=== PATIENT | male | born 1955 | race Caucasian/White ===

== ENCOUNTER 2019-03-28 09:37 | Emergency (ER) | payer BC ==
--- NOTE | 2019-03-28 10:24 | ED ---
Abdominal Pain/Male - HPI Summary HPI Summary: 64-year-old male presents with complaints of constipation. Patient states that approximately one week ago he went to urgent days without having a bowel movement so he took a laxative. The next day he had a couple very small bowel movements and then was unable to go for another 5 days. He took another laxative last evening and had a couple more small bowel movements including one in the emergency room shortly after arrival. States his abdomen feels distended and he has noticed that his belly button seems to be "popping out". No abdominal pain except for some mild tenderness when he presses over his belly button. Denies fever, chills, chest pain, shortness of breath, nausea, vomiting, diarrhea, blood in stool, melena, dysuria, frequency, urgency, or hematuria. - History of Current Complaint Chief Complaint: EDConstipation Stated Complaint: CONSTIPATION Time Seen by Provider: 03/28/19 09:46 Hx Obtained From: Patient Pain Intensity: 2 - Allergies/Home Medications Allergies/Adverse Reactions: Allergies Allergy/AdvReac Type Severity Reaction Status Date / Time No Known Allergies Allergy Verified 11/30/15 02:56 Home Medications: Home Medications Atorvastatin* [Lipitor*] 10 mg PO BEDTIME 03/28/19 [History Confirmed 03/28/19] Verapamil HCl [Verapamil Sr] 180 mg PO DAILY 03/28/19 [History Confirmed ] PMH/Surg Hx/FS Hx/Imm Hx Endocrine/Hematology History: Denies: Hx Diabetes, Hx Thyroid Disease Cardiovascular History: Reports: Hx Hypertension - BENIGN Denies: Hx Coronary Artery Disease Respiratory History: Reports: Hx Sleep Apnea GI History: Denies: Hx Diverticulosis, Hx Gall Bladder Disease, Hx Gastroesophageal Reflux Disease, Hx Gastrointestinal Bleed, Hx Irritable Bowel, Hx Obstructive Bowel, Hx Ulcer Infectious Disease History: No Infectious Disease History: Denies: Traveled Outside the [place] in Last 30 Days - Family History Known Family History: Positive: Non-Contributory - Social History Occupation: Employed Full-time Lives: With Family Alcohol Use: None Substance Use Type: Reports: None Hx Tobacco Use: No Smoking Status (MU): Never Smoked Tobacco Review of Systems Negative: Fever, Chills Cardiovascular: Negative Respiratory: Negative Positive: Abdominal Pain, Other - Constipation. Negative: Vomiting, Diarrhea, Nausea Negative: dysuria, frequency, flank pain, hematuria, urgency Musculoskeletal: Negative Skin: Negative Neurological: Negative All Other Systems Reviewed And Are Negative: Yes Physical Exam - Summary Physical Exam Summary: GENERAL APPEARANCE: Alert and cooperative, obese, older adult male who appears to be in no acute distress. CARDIAC: Normal S1 and S2. No S3, S4 or murmurs. Rhythm is regular. There is no peripheral edema, cyanosis or pallor. Extremities are warm and well perfused. Capillary refill is less than 2 seconds. Peripheral pulses intact. LUNGS: Clear to auscultation without rales, rhonchi, wheezing or diminished breath sounds. ABDOMEN: Positive bowel sounds. Rotund, soft, nondistended, nontender abdomen. Small reducible umbilical hernia. No guarding or rebound. No masses or hepatosplenomegally. No CVA tenderness. MUSKULOSKELETAL: ROM intact to all extremities. No joint erythema or tenderness. Normal muscular development. Normal gait. SKIN: Skin normal color, texture and turgor with no lesions or eruptions. Triage Information Reviewed: Yes Vital Signs On Initial Exam: Initial Vitals Temp Pulse Resp BP Pulse Ox 99 F 63 20 181/83 94 03/28/19 09:39 03/28/19 09:39 03/28/19 09:39 03/28/19 09:39 03/28/19 09:39 Vital Signs Reviewed: Yes Diagnostics - Vital Signs Vital Signs Temp Pulse Resp BP Pulse Ox 03/28/19 10:00 62 98 03/28/19 09:57 64 196/108 98 03/28/19 09:56 67 97 03/28/19 09:39 99 F 63 20 181/83 94 - Laboratory Result Diagrams: 03/28/19 10:44 03/28/19 10:45 Lab Statement: Any lab studies that have been ordered have been reviewed, and results considered in the medical decision making process. - Radiology No standard instances Radiology Interpretation Completed By: ED Physician Summary of Radiographic Findings: Patient Name: FLORENTINO PATEL Medical Record#: [id number]. Ordering Physician: Gamaliel Jimenez NP Acct.#: [id number]. : 1955 Age: 64 Sex: M Location: EMERGENCY DEPARTMENT. Exam Date: 1005 ADM Status: REG ER. Order Information: ABDOMEN (COMPLETE) 2 VWS. Accession Number: [id number]. CPT: 58522. INDICATION: Abdominal pain and constipation. COMPARISON: CT of the abdomen and pelvis dated December 30, 2011. TECHNIQUE: Supine and upright views of the abdomen were obtained. FINDINGS: The small bowel and colon appear nondistended. No free intraperitoneal air is seen. No grossly abnormal or pathologic appearing calcifications are noted. Visualized bones are within normal limits for the patient's age. IMPRESSION: Normal abdominal radiograph. Abdominal Pain Male Course/Dx - Course Course Of Treatment: 64-year-old male presents with complaints of constipation. Patient states that approximately one week ago he went to urgent days without having a bowel movement so he took a laxative. The next day he had a couple very small bowel movements and then was unable to go for another 5 days. He took another laxative last evening and had a couple more small bowel movements including one in the emergency room shortly after arrival. States his abdomen feels distended and he has noticed that his belly button seems to be "popping out". No abdominal pain except for some mild tenderness when he presses over his belly button. Denies fever, chills, chest pain, shortness of breath, nausea , vomiting, diarrhea, blood in stool, melena, dysuria, frequency, urgency, or hematuria. Afebrile. Hypertensive otherwise vital signs stable. Patient was noted to have rotund, soft, nontender abdomen with positive bowel sounds, small umbilical hernia was noted, and otherwise unremarkable exam. Abdominal x-ray showed no acute pathology. CBC showed a mild normocytic anemia and CMP was unremarkable except for a mildly elevated creatinine. Discussed findings with the patient. I suspect that this is constipation although I did psychotherapist counselor the patient that the x-ray is not as sensitive as CT however with his nontender abdomen did not feel that this was warranted at this time. Recommending a high fiber diet as well as using a fiber supplement. He is to follow-up with his primary care provider in 3 days for recheck. Discharged guidance and warning symptoms are reviewed with the patient. Verbalizes understanding and agrees with plan of care. - Diagnoses Differential Diagnosis/HQI/PQRI: Bowel Obstruction, Constipation Provider Diagnoses: Constipation Discharge - Sign-Out/Discharge Documenting (check all that apply): Patient Departure Patient Received Moderate/Deep Sedation with Procedure: No - Discharge Plan Condition: Stable Disposition: HOME Patient Education Materials: Constipation (ED), High Fiber Diet (ED) Referrals: Thu Nielson, HOUSEKEEPING ROOM INSPECTOR [Primary Care Provider] - 3 Days Additional Instructions: Your abdominal x-ray performed in the emergency room today was normal and your lab work was stable. I suspect that to have some constipation. Be sure to increase your fiber intake. I have provided you with some information on a high-fiber diet. I would also recommend he start using a fiber supplement such as Metamucil or Citrucel according to directions. Be sure to drink plenty of fluids with the supplement. Follow-up with your primary care provider in 3 days for recheck of your symptoms. Return to the emergency room if you develop a fever greater than 100.5 F, he has severe abdominal pain, persistent or projectile vomiting, blood in your stool, dark black stools, or any worsening of symptoms. - Billing Disposition and Condition Condition: STABLE Disposition: Home
[2019-03-28 10:49] LABS: ABS Basophils 0.1 10^3/ul (0-0.2); ABS Eosinophils 0.1 10^3/ul (0-0.6); ABS Lymphocytes 1.4 10^3/ul (1.0-4.8); ABS Monocytes 0.6 10^3/ul (0-0.8); ABS Neutrophils 3.2 10^3/ul (1.5-7.7); Eosinophil % 2.1 %; Hematocrit 39 % (42-52); Hemoglobin 13.2 g/dL (14.0-18.0); Lymphocyte % 26.6 %; Mean Corpuscular HGB Conc 34 g/dL (31-36); Mean Corpuscular Hemoglobin 29 pg (27-31); Mean Corpuscular Volume 86 fL (80-94); Mean Platelet Volume 7.7 fL (7.4-10.4); Platelet Count 277 10^3/uL (150-450); Red Blood Count 4.57 10^6 /uL (4.18-5.48); Red Cell Distribution Width 15 % (10-15); White Blood Count 5.4 10^3/uL (3.5-10.8)
[2019-03-28 11:06] LABS: Albumin 3.8 g/dL (3.2-5.2); Albumin/Globulin Ratio 1.2 (1-3); BUN/Creatinine Ratio 19.7 (8-20); Calcium 9.1 mg/dL (8.6-10.3); EGFR African American 72.8 (>60); EGFR Non-African American 60.2 (>60); Globulin 3.1 g/dL (2-4); Potassium 3.9 mmol/L (3.5-5.0); Total Bilirubin 0.3 mg/dL (0.2-1.0); Total Protein 6.9 g/dL (6.4-8.9)
[2019-03-28 11:34] VITALS: BP 138/80
== END 2019-03-28 11:34 | disposition home or self-care (01) ==
LOC: ED 09:37
DX: K59.00 Constipation, unspecified (principal); I10 Essential (primary) hypertension; Z79.899 Other long term (current) drug therapy
CPT/HCPCS: 36415; 74019; 80053; 83690; 85025; 99283

== ENCOUNTER 2019-07-13 05:03 | Emergency (ER) | payer BC ==
[2019-07-13 05:44] LABS: ABS Basophils 0.1 10^3/ul (0-0.2); ABS Eosinophils 0.1 10^3/ul (0-0.6); ABS Lymphocytes 1.3 10^3/ul (1.0-4.8); ABS Monocytes 0.8 10^3/ul (0-0.8); ABS Neutrophils 4.5 10^3/ul (1.5-7.7); Eosinophil % 1.6 %; Hematocrit 40 % (42-52); Hemoglobin 13.8 g/dL (14.0-18.0); Lymphocyte % 19.6 %; Mean Corpuscular HGB Conc 34 g/dL (31-36); Mean Corpuscular Hemoglobin 30 pg (27-31); Mean Corpuscular Volume 86 fL (80-94); Mean Platelet Volume 7.8 fL (7.4-10.4); Platelet Count 306 10^3/uL (150-450); Red Blood Count 4.67 10^6 /uL (4.18-5.48); Red Cell Distribution Width 15 % (10-15); White Blood Count 6.7 10^3/uL (3.5-10.8)
[2019-07-13 05:51] LABS: INR 0.87 (0.82-1.09)
[2019-07-13 06:00] LABS: Albumin 3.9 g/dL (3.2-5.2); Albumin/Globulin Ratio 1.2 (1-3); BUN/Creatinine Ratio 24.1 (8-20); Calcium 8.6 mg/dL (8.6-10.3); EGFR African American 61.6 (>60); EGFR Non-African American 50.9 (>60); Globulin 3.2 g/dL (2-4); Potassium 4.4 mmol/L (3.5-5.0); Total Bilirubin 0.3 mg/dL (0.2-1.0); Total Protein 7.1 g/dL (6.4-8.9)
[2019-07-13] MEDS ORDERED: Aspirin 81 mg CHEW TAB* 81 MG TAB.CHEW PO ONE (06:00)
--- NOTE | 2019-07-13 06:00 | ED ---
HPI Chest Pain - HPI Summary HPI Summary: Pt is a 64 year old male with a significant past medical history of Diabetes type 2, ALONZO (uses CPAPA), hyperlipidemia, hypertension which are managed with medication who presented to the emergency department today with a complaint of chest pain since 0300 this morning. He states the pain was a 7/10 during the onset with no other symptoms such as sweating, arm pain, jaw pain, abdominal pain, shortness of breath. Pt denies past medical history of [place] or stent placement but states he does have a family history of [place]. Now, 3 hours later he states his chest pain has improved but is a constant 2/10 midsternal "pressure". He states laying on his side makes his symptoms worse and exertion does not exacerbate his symptoms. Pt states he has never had these symptoms before. Pt denies fever, shortness of breath, abdominal pain, cough, recent travel or surgery or recent illness. Pt reports a 1 pack/year smoking history but quit when he was a teenager, and denies recreation drug use or alcohol use. NPO since 6pm last evening. - History of Current Complaint Chief Complaint: EDChestPainROMI Time Seen by Provider: 07/13/19 05:59 Hx Obtained From: Patient Onset/Duration: Started Hours Ago - since 0300 Timing: Constant Initial Severity: Mild Current Severity: Mild Pain Intensity: 4 Pain Scale Used: 0-10 Numeric Chest Pain Location: Mid Sternal Chest Pain Radiates: No Character: Other: - "pressure" Aggravating Factor(s): Position - laying on his side Alleviating Factor(s): Nothing Associated Signs and Symptoms: Positive: Chest Pain. Negative: Vision Changes, Numbness, Tingling, Shortness of Breath, Fever, Lightheadedness, Diaphoresis, Nausea, Cough, Productive Cough, Nonproductive Cough, Abdominal Pain, URI Related History: Obesity - Risk Factors Pulmonary Embolism Risk Factors: Negative TAD Risk Factors: Hypertension AMI/ACS Risk Factors: Obesity, Family History, Hypertension, Dyslipidemia - Allergy/Home Medications Allergies/Adverse Reactions: Allergies Allergy/AdvReac Type Severity Reaction Status Date / Time No Known Allergies Allergy Verified 07/13/19 05:16 Home Medications: Home Medications Aspirin [Yuli Aspirin EC Low Dose 81 MG] 81 mg PO DAILY 07/13/19 [History Confirmed 07/13/19] Vit D3/Folic Acid/B2/B6/B12 [Folgard Tablet] 1 tab PO DAILY 07/13/19 [History Confirmed 07/13/19] PMH/Surg Hx/FS Hx/Imm Hx Endocrine/Hematology History: Denies: Hx Diabetes, Hx Thyroid Disease Cardiovascular History: Reports: Hx Hypertension - BENIGN Denies: Hx Coronary Artery Disease Respiratory History: Reports: Hx Sleep Apnea GI History: Denies: Hx Diverticulosis, Hx Gall Bladder Disease, Hx Gastroesophageal Reflux Disease, Hx Gastrointestinal Bleed, Hx Irritable Bowel, Hx Obstructive Bowel, Hx Ulcer - Immunization History Immunizations Up to Date: Yes Infectious Disease History: No Infectious Disease History: Denies: Traveled Outside the [place] in Last 30 Days - Family History Known Family History: Positive: Non-Contributory - Social History Alcohol Use: None Substance Use Type: Reports: None Hx Tobacco Use: No Smoking Status (MU): Never Smoked Tobacco Review of Systems Constitutional: Negative Positive: Chest Pain Respiratory: Negative Gastrointestinal: Negative Psychological: Normal All Other Systems Reviewed And Are Negative: Yes Physical Exam Triage Information Reviewed: Yes Vital Signs On Initial Exam: Initial Vitals Temp Pulse Resp BP Pulse Ox 97.6 F 64 18 165/84 96 07/13/19 05:10 07/13/19 05:10 07/13/19 05:10 07/13/19 05:10 07/13/19 05:10 Vital Signs Reviewed: Yes Appearance: Positive: Well-Appearing, No Pain Distress, Well-Nourished, Obese Skin: Positive: Warm, Skin Color Reflects Adequate Perfusion Head/Face: Positive: Normal Head/Face Inspection Eyes: Positive: Normal, EOMI ENT: Positive: Hearing grossly normal Respiratory/Lung Sounds: Positive: Clear to Auscultation, Breath Sounds Present Cardiovascular: Positive: Normal, RRR, S1, S2. Negative: Murmur, Rub Abdomen Description: Positive: Nontender, Soft Bowel Sounds: Positive: Present Psychiatric: Positive: Normal AVPU Assessment: Alert Procedures - Sedation Patient Received Moderate/Deep Sedation with Procedure: No Diagnostics - Vital Signs Vital Signs Temp Pulse Resp BP Pulse Ox 07/13/19 05:10 97.6 F 64 18 165/84 96 - Laboratory Lab Results: Lab Results 07/13/19 07/13/19 Range/Units 05:34 05:34 WBC 6.7 (3.5-10.8) 10^3/uL RBC 4.67 (4.18-5.48) 10^6 /uL Hgb 13.8 L (14.0-18.0) g/dL Hct 40 L (42-52) % MCV 86 (80-94) fL MCH 30 (27-31) pg MCHC 34 (31-36) g/dL RDW 15 (10-15) % Plt Count 306 (150-450) 10^3/uL MPV 7.8 (7.4-10.4) fL Neut % (Auto) 66.7 % Lymph % (Auto) 19.6 % [place] % (Auto) 11.2 % Eos % (Auto) 1.6 % Baso % (Auto) 0.9 % Absolute Neuts (auto) 4.5 (1.5-7.7) 10^3/ul Absolute Lymphs (auto) 1.3 (1.0-4.8) 10^3/ul Absolute Monos (auto) 0.8 (0-0.8) 10^3/ul Absolute Eos (auto) 0.1 (0-0.6) 10^3/ul Absolute Basos (auto) 0.1 (0-0.2) 10^3/ul Absolute Nucleated RBC 0.0 10^3/ul Nucleated RBC % 0.0 INR (Anticoag Therapy) 0.87 (0.82-1.09) Result Diagrams: 07/13/19 05:34 07/13/19 05:34 Lab Statement: Any lab studies that have been ordered have been reviewed, and results considered in the medical decision making process. Re-Evaluation - Re-Evaluation First Eval Re-Evaluation Time: 07:07 Change: Improved - Pt continues to improve and have less chest pain. Now reporting 1/10 chest pressure. Pt has received ASA 162. Chest Pain Course/Dx - Course Course Of Treatment: Pt was evaluated in the ED for chest pain. Upon arrival pt as an EKG done which showed NSR with a rate of 62 bpm. No evidence of ST elevation or iscemia. no changes in AL or QT interval. Pt was seen and evaluated. Labratory work including troponin was performed. Initial troponin came back as .01. HEART score was 3. Serial troponin drawn 4 hours later showed no rise in troponin. Patient was discharged to home and was told to follow-up with his primary care provider in 2-3 days for further evaluation of his symptoms as it was found by his no acute cardiopulmonary disease. Patient agrees with this plan. - Chest Pain Differential Diagnosis/HQI/PQRI: Acute [place], ACS, Angina, Aortic Aneurysm, CHF, GI Disease, Lower Respiratory Infection, Pulmonary Edema, Pulmonary Embolism - Diagnoses Provider Diagnoses: Chest pain Discharge ED - Sign-Out/Discharge Documenting (check all that apply): Patient Departure - Discharge Plan Condition: Improved Disposition: HOME Patient Education Materials: Chest Pain (ED) Referrals: Thu Nielson NP [Primary Care Provider] - 3 Days Additional Instructions: you were seen in the emergency department today for chest pain. Your blood work showed no evidence of heart attack or any other acute cardio or pulmonary pathology. you should follow up with your primary care physician in 2-3 days for further evaluation and management of your symptoms. If you develops any new symptoms or your symptoms worsen please return to the emergency Department immediately. Return to activity as tolerated - Billing Disposition and Condition Condition: IMPROVED Disposition: Home - Attestation Statements Provider Attestation: I was available for consult. This patient was seen by the CHIK[facility]. The patient was not presented to, seen by, or examined by me. -Jose
[2019-07-13 06:02] LABS: Troponin I 0.01 ng/mL (<0.04)
[2019-07-13 10:25] VITALS: BP 141/81
== END 2019-07-13 09:50 | disposition home or self-care (01) ==
LOC: ED 05:03
DX: R07.89 Other chest pain (principal); E11.9 Type 2 diabetes mellitus without complications; E78.5 Hyperlipidemia, unspecified; I10 Essential (primary) hypertension; Z79.82 Long term (current) use of aspirin
CPT/HCPCS: 36415; 80053; 84484; 85025; 85610; 93005; 99282; A9270-GY

== ENCOUNTER 2024-06-26 21:15 | Observation (INO) ==
[2024-06-26] MEDS: Iodixanol 320 (CONTRAST) 100 ML SDV IV ONE (21:50)
[2024-06-26 22:16] LABS: Activated Partial Thrombo Time 30.9 seconds (26.0-38.0); INR 0.84 (0.85-1.14)
[2024-06-26 22:20] LABS: ABS Basophils 0.1 10^3/uL (0.0-0.1); ABS Eosinophils 0.2 10^3/uL (0.0-0.5); ABS Lymphocytes 2.3 10^3/uL (1.0-4.8); ABS Monocytes 0.8 10^3/uL (0.0-1.1); ABS Neutrophils 3.8 10^3/uL (1.5-7.6); Eosinophil % 2.2 %; Hematocrit 35.9 % (38-53); Hemoglobin 12.1 g/dL (13.2-16.3); Lymphocyte % 32.3 %; Mean Corpuscular Hemoglobin 29.7 pg (27-33); Mean Corpuscular Hgb Conc 33.8 g/dL (31-36); Mean Platelet Volume 7.8 fL (7.5-11.2); Platelet Count 310 10^3/uL (150-450); Red Blood Count 4.08 10^6/uL (4.06-5.63); Red Cell Distribution Width 15.1 % (12-17)
[2024-06-26 22:45] LABS: Albumin 4.1 g/dL (3.2-5.2); Albumin/Globulin Ratio 1.5 (1-3); Calcium 9.2 mg/dL (8.6-10.3); Creatinine, Serum 1.38 mg/dL (0.67-1.17); Globulin 2.7 g/dL (2-4); HDL Cholesterol 40.3 mg/dL; Indirect Bilirubin 0.3 mg/dL (0.3-1.0); Potassium 4.1 mmol/L (3.5-5.0); Total Bilirubin 0.3 mg/dL (0.2-1.0); Total Protein 6.8 g/dL (6.4-8.9)
[2024-06-26] MEDS ORDERED: Dextrose 50% Syringe 50 ml 25 GM/50 ML SYRINGE IV PUSH PRN (23:47)
[2024-06-26] MEDS ORDERED: Sulfur Hexaflouride MICROSPHR 25 MG VIAL IV PRN (23:56)
[2024-06-27] LABS: Urine Appearance Clear; Urine Bilirubin Negative (Negative); Urine Blood Negative (Negative); Urine Color Light-Yellow; Urine Glucose Negative (Negative); Urine Ketones Negative (Negative); Urine Nitrite Negative (Negative); Urine Protein Negative (Negative); Urine Specific Gravity 1.048 (1.002-1.030); Urine Urobilinogen Negative (Negative); Urine pH 5.5 (5.0-8.0)
[2024-06-27] MEDS: Enoxaparin 40 MG/0.4 ML SYR SUBCUT SCH (00:24)
[2024-06-28 13:50] VITALS: BP 128/72
== END 2024-06-28 16:30 | disposition home or self-care (01) ==
LOC: EDHOLD 21:15 → ED 21:15 → MED 06-27 12:39
PROVIDERS: ADMIT Internal Medicine; ATTEND Internal Medicine